=== PATIENT | female | born 1965 | race Caucasian/White ===

== ENCOUNTER 2019-02-24 10:36 | Day surgery (SDC) | payer BC, OTHER ==
[~2019-02-24] VITALS: Ht 152.4 cm; Wt 60.3 kg
[2019-02-24] MEDS ORDERED: NO ACTIVE MEDS (10:58)
[2019-02-24 12:21] VITALS: BP 113/68; PULSE 63; RESP 15
[2019-02-24] MEDS ORDERED: MIDAZOLAM 1 MG/ML 2 ML INJ ONE ×2 (13:09→13:10)
[2019-02-24] MEDS ORDERED: FENTAnyl 50 MCG/ML VIAL ONE (13:09)
[2019-02-24 13:23] VITALS: BP 114/68; PULSE 61; RESP 16
== END 2019-02-24 14:03 | disposition home or self-care (01) ==
LOC: GIL 10:36
PROVIDERS: ATTEND Internal Medicine Gastroenterology
DX: Z12.11 Encounter for screening for malignant neoplasm of colon (principal); K64.4 Residual hemorrhoidal skin tags
CPT/HCPCS: 45378; J2250; J3010; Z7610